=== PATIENT | born 2000 | race Two or more races ===

== ENCOUNTER 2025-08-03 14:39 | Emergency (ER) | payer MEDICAID, OTHER ==
[~2025-08-03] VITALS: Ht 165.1 cm; Wt 84.3 kg
[2025-08-03 15:51] LABS: Urine Protein, UAD Negative (Negative)
--- NOTE | 2025-08-03 16:26 | ED.PDOC ---
History of Present Illness HPI Comments 25 y/o obese, AFAB - transgender M presents with significant other for c/c fatigue, weakness, lightheadedness, and poor appetite. Per significant other, patient has been experiencing symptoms since having all four of his wisdom teeth removed on 08/01/25. Significant history for autism spectrum disorder, avoida nt/restrictive food intake disorder (ARFID), anxiety, bulimia, HLD, PTSD, [id number], and bilateral subcutaneous mastectomy. Patient was evaluated, earlier, for symptoms at [facility] and was found and treated for hypoglycemia before being discharged home. No additional acute symptoms reported at this time. Chief Complaint: Hypoglycemia Time Seen by MD: 15:00 Reviewed Notes: Nurses Notes, Medications, Allergies Allergies: Coded Allergies: Ibuprofen (Verified Allergy, Unknown, 08/03/25) Lactose (Verified Allergy, Unknown, 08/03/25) Penicillins (Verified Allergy, Unknown, 08/03/25) Information Source: Patient, Spouse Mode of Arrival: Ambulatory Severity: Moderate Timing: Weeks Duration: Since onset Prehospital treatment: None Past Medical History PAST MEDICAL HISTORY: Anxiety Past Medical History (Other): Autism Spectrum Disorder (ASD) Avoidant/restrictive food intake disorder (ARFID) Bulmia Covid19 PNA Surgical History (Other): Bilateral subcutaneous mastectomy CAT OPERATOR History: Denies all CAT OPERATOR Hx Family History Family History: Unknown Social History Smoker: Non-Smoker Alcohol: Denies ETOH Use Drugs: Denies Drug Use Lives In: Home All Other Systems: Reviewed and Negative (Comprehensive review of systems are negative unless otherwise stated in HPI) Physical Exam General Appearance: Moderate Distress HEENT: Normal ENT Inspection, Pharynx Normal, TMs Normal Neck: Full Range of Motion, Non-Tender, Normal, Normal Inspection Respiratory: Chest Non-Tender, Lungs Clear, No Accessory Muscle Use, No Respiratory Distress, Normal Breath Sounds Cardiovascular: No Edema, No JVD, No Murmur, No Gallop, Normal Peripheral Pulses, Regular Rate/Rhythm Breast Exam: Deferred Gastrointestinal: No Organomegaly, Non Tender, No Pulsatile Mass, Normal Bowel Sounds, Soft Genitalia: Deferred Pelvic: Deferred Rectal: Deferred Extremities: No calf tenderness, Normal capillary refill, Normal inspection, Normal range of motion, Non-tender, No pedal edema Musculoskeletal : Apperance: Normal Neurologic: Alert, wood molder II-XII nml as Tested, No Motor Deficits, Normal Affect, Normal Mood, No Sensory Deficits Cerebellar Function: NOT DONE Reflexes: NOT DONE Skin: Dry, Normal Color, Warm Peripheral Pulses: 3+ Radial (R), 3+ Radial (L) Lymphatic: No Adenopathy Was a procedure done? Was a procedure done?: No Differential Dx Considerations may include: Hypoglycemia, electrolyte imbalance, dehydration, malnutrition, postop complication, sensitivity disorder, ARFID X-Ray, Labs, Meds, VS Vital Signs Date Time Temp Pulse Resp B/P (MAP) Pulse Ox O2 Delivery O2 Flow Rate FiO2 08/03/25 14:44 98.5 76 24 126/77 97 98.5 Lab Test 08/03/25 14:49 08/03/25 00:00 Range/Units POC Glucose 89 70-106 mg/dl Urine Color Yellow Urine Clarity Hazy Urine pH 6.0 Urine Specific Ider 1.025 Urine Protein Negative Negative Urine Ketones 1+ H Negative Urine Blood Negative Negative /uL Urine Nitrite Negative Negative Urine Bilirubin Negative Negative Urine Urobilinogen Normal Negative mg/dL Urine Leukocyte Esterase 1+ Negative /uL Urine RBC 4 /hpf Urine Microscopic WBC 3 0-3 /HPF Urine Squamous Epithelial Cells Mod /hpf Urine Bacteria Few H None Seen /hpf Urine Glucose Normal Normal mg/dL Patient alert. Has not any liquid solid food for days. Vitals stable. Answering questions. Possible gastroenteritis. Moving all extremities. Establish intravenous access. Was given fluids. Urinalysis shows UTI. Was given prescription of Bactrim. Will be followed by night provider. Time of 1ST Reevaluation: 15:30 Reevaluation 1ST: Improved Patient Education/Counseling: Diagnosis, Treatment, Need For Follow Up Family Education/Counseling: Diagnosis, Treatment, Need For Follow Up SEPSIS Sepsis Screen Date sepsis recognized/suspect: Aug 03, 2025 Time Sepsis recognized/suspect: 1443 Recent Procedure: No On Antibiotic Therapy: No Respiratory Rate >20: No Heart Rate >90: No Temp<36 C (96.8 F) or >38.3 C: No SBP <90 or MAP <65 mmHG: No New Acute Mental Status Change: No Is the patient on CPAP, BIPAP,: No Physician Orders Complete Blood Count (08/03/25 15:05) Basic Metabolic Panel (08/03/25 15:05) Vital Signs Date Time Temp Pulse Resp B/P (MAP) Pulse Ox O2 Delivery O2 Flow Rate FiO2 08/03/25 14:44 98.5 76 24 126/77 97 98.5 Departure 1 Departure Time of Disposition: 17:22 Impression: Primary Impression: Gastroenteritis Additional Impression: UTI (urinary tract infection) Qualified Codes: N30.00 - Acute cystitis without hematuria Disposition: 30 STILL A PATIENT Condition: Good e-Prescriptions Sulfamethoxazole W/Trimethopri (Bactrim Ds Tablet) 1 Tab Tb 1 TAB PO BID for 7 Days, #14 TAB Prov: JUAN DAVID CONDON MD 08/03/25 Discharged With: Self Critical Care Note Critical Care Time?: No Stability Stability form required: No Heart Score Heart Score: Heart Score Response (Comments) Value History N/A 0 EKG N/A 0 Age N/A 0 Risk Factors N/A 0 Troponin N/A 0 Total 0 I personally scribed for JUAN DAVID CONDON MD ([email or web address]) on 08/03/25 at 16:26. Electronically submitted by Tahir Salazar ([email or web address]). JUAN DAVID CONDON MD Aug 03, 2025 16:26
[2025-08-03] MEDS ORDERED: BACDST PO (17:23)
[2025-08-03 19:27] LABS: Hematocrit 43.5 % (41.0-53.0); Hemoglobin 14.2 g/dL (13.5-17.5); Mean Corpuscular Hemoglobin 21.7 pg (28.0-32.0); Mean Corpuscular Volume 66.6 fL (80.0-100.0); Nucleated Red Blood Cells % 0.1 %
[2025-08-03 19:30] LABS: Chloride 102 mmol/L (98-107); Potassium 3.8 mmol/L (3.5-5.1); Sodium 139 mmol/L (136-145)
[2025-08-03 19:31] LABS: Anion Gap 12 (5-15); Calcium 9.5 mg/dL (8.7-10.4); Carbon Dioxide 25 mmol/L (20-31)
[2025-08-03 19:36] LABS: BUN/Creatinine Ratio 12.1 (10.0-20.0); Blood Urea Nitrogen 11 mg/dL (9-23)
[2025-08-03 19:50] LABS: Glucose 63 mg/dL (74-106)
[2025-08-03] MEDS: HYDROcodone-ACET 5/325MG TAB PO ONE (21:12)
[2025-08-03 21:54] VITALS: BP 124/71; PULSE 84; RESP 20; TEMP 97.6; O2SAT 97
[2025-08-03] MEDS ORDERED: AMOX500C2 PO (22:12)
== END 2025-08-03 22:15 | disposition home or self-care (01) ==
LOC: ER 14:39
DX: N39.0 Urinary tract infection, site not specified (principal); K52.9 Noninfective gastroenteritis and colitis, unspecified; F41.9 Anxiety disorder, unspecified; Z88.1 Allergy status to other antibiotic agents; Z88.0 Allergy status to penicillin
CPT/HCPCS: 36415; 80048; 81001; 82947; 82962; 85025